=== PATIENT | female | born 1990 ===

== ENCOUNTER 2019-04-23 13:52 | Outpatient (CLI) | payer BC ==
--- NOTE | 2019-04-23 15:05 | ULT ---
EXAM: US Thyroid STANDARD PROVIDED CLINICAL HISTORY: Thyroid nodule. COMPARISON: None FINDINGS: The thyroid gland is diffusely heterogeneous in appearance. A discrete thyroid nodule is not visualiz ed. The right lobe of the thyroid gland measures 3.9 cm x 1.7 cm x 1.7 cm and the left lobe measures 3.5 cm x 1.7 cm x 1.5 cm. The thyroid isthmus is thickened in AP dimensions measuring 0.5 cm . IMPRESSION: Generalized heterogeneity of the thyroid gland without a discrete nodule visualized.
== END 2019-04-23 13:53 | disposition home or self-care (01) ==
LOC: SCSULT 13:52
PROVIDERS: ATTEND Specialist
DX: R22.1 Localized swelling, mass and lump, neck (principal); R93.89 Abnormal findings on diagnostic imaging of other specified body structures
CPT/HCPCS: 76536